=== PATIENT | female | born 1995 | race Caucasian/White ===

== ENCOUNTER 2016-04-11 10:04 | Emergency (ER) | payer BC, OTHER ==
[~2016-04-11] VITALS: Ht 167.6 cm; Wt 88.0 kg
[~2016-04-11 10:04] MED LIST: CETI5TAB2 PO; FIORIC PO; MOBI15TA PO; PROM25TA5 PO; SERT100 PO
[2016-04-11 10:06] VITALS: BP 140/88; PULSE 88; RESP 20; TEMP 97.9; O2SAT 95
--- NOTE | 2016-04-11 10:43 | PD ---
HPI Chief Complaint: ENT Complaint Time Seen by Provider: 10:33 Travel History International Travel<30 days: No Contact w/Intl Traveler<30days: No Traveled to known affect area: No History of Present Illness HPI 20-year-old female presents to the emergency Department with complaint of a possible nasal septal abscess that has developed over the past 3 days. Has history of nasal septal abscess in December 2014 and her current symptoms feel similar. She also has history of migraine headaches and is having a migraine at this time that is unrelieved with Fioricet, which normally takes the edge off at least; last took this morning at approximately 2 AM. Reports severe tenderness to the left nasal and maxillary area. Denies nasal drainage. Denies recent cough, nasal congestion, ear pain, sore throat. Denies fever, chills, nausea, vomiting. Reports having CT scan to verify the nasal septal abscess a year ago. Reports following up with ENT and having the abscess drained and being on oral antibiotics and topical antibiotics. Primary care provider is Dr. Friend. Allergies to Augmentin, Omnicef, Cedax. History of migraines and exercise-induced asthma. No other modifying factors or associated signs and symptoms. PFSH Past Medical History Hx Anticoagulant Therapy: No Asthma: Yes (ACTIVITY INDUCED) Depression: Yes Cardiovascular Problems: No Chemotherapy: No Cerebrovascular Accident: No Diabetes: No Diminished Hearing: No Musculoskeletal: Yes (BACK PAIN) Respiratory: Yes (asthma) Immunizations Current: Yes ?: Not : 0 Past Surgical History Hysterectomy: No Oral Surgery: Yes (WISDOM TEETH REMOVAL) Social History Alcohol Use: No Tobacco Use: No Substance Use: No (DENIED) Allergies-Medications (Allergen,Severity, Reaction): Coded Allergies: Augmentin (Verified Allergy, Severe, Hives, 04/11/16) Omnicef (Verified Allergy, Severe, Anaphylaxis, 04/11/16) Uncoded Allergies: cedax (Allergy, Severe, Anaphylaxis, 03/16/14) Reported Meds & Prescriptions Reported Meds & Active Scripts Active Reported Zoloft (Sertraline HCl) 100 Mg Tab 150 Mg PO DAILY Review of Systems Except as stated in HPI: all other systems reviewed are Neg Physical Exam Narrative GENERAL: Well-nourished, well-developed female patient, in no acute distress; afebrile, nontoxic-appearing SKIN: Warm and dry. No rash. HEAD: Atraumatic. Normocephalic. EYES: Pupils equal and round at 3 mm with brisk reaction. No scleral icterus. No injection or drainage. PERRLA. ENT: Mucosa pink and moist. No erythema or exudates. No uvular edema. No uvular , palatal, or tonsillar deviation. Airway patent. Nasal turbinates appear normal without nasal blood, purulent drainage or septal hematoma; I am unable to visualize a septal abscess bilaterally. Patient has severe tenderness to the left nostril on exam and palpation to the left nasal bridge and maxillary area; areas without erythema, edema. EARS: Bilateral pinnae and external canals appear within normal limits. Bilateral tympanic membranes without erythema, dullness or perforation. NECK: Trachea midline. No lymphadenopathy. CARDIOVASCULAR: Regular rate and rhythm. No murmur appreciated. RESPIRATORY: No accessory muscle use. Clear to auscultation. Breath sounds equal bilaterally. GASTROINTESTINAL: Abdomen soft, non-tender, nondistended. Hepatic and splenic margins not palpable. Bowel sounds are active 4 quadrants. MUSCULOSKELETAL: No obvious deformities. No clubbing. No cyanosis. No edema. NEUROLOGICAL: Awake and alert. Oriented 3. No obvious cranial nerve deficits. Motor grossly within normal limits. Normal speech. Moves all extremities. 5/5 strength to all extremities. PSYCHIATRIC: Appropriate mood and affect; insight and judgment normal Data Data Last Documented VS Vital Signs Date Time Temp Pulse Resp B/P Pulse Ox O2 Delivery O2 Flow Rate FiO2 04/11/16 10:06 97.9 88 20 140/88 95 Room Air Orders Basic Metabolic Panel (Bmp) (04/11/16 10:43) Complete Blood Count With Diff (04/11/16 10:43) Iv Access Insert/Monitor (04/11/16 10:43) Sodium Chloride 0.9% Flush (Ns Flush) (04/11/16 10:45) Ed Urine Pregnancytest Poc (04/11/16 10:43) Ct Facial Bones W Iv Contrast (04/11/16 ) Hydromorphone Pf Inj (Dilaudid Pf Inj) (04/11/16 11:15) Ondansetron Inj (Zofran Inj) (04/11/16 11:15) Ketorolac Inj (Toradol Inj) (04/11/16 11:15) Diphenhydramine Inj (Benadryl Inj) (04/11/16 11:15) Prochlorperazine Inj (Compazine Inj) (04/11/16 11:15) Sodium Chlor 0.9% 1000 Ml Inj (Ns 1000 M (04/11/16 11:15) Wound Culture And Gram Stain (04/11/16 11:26) Labs Laboratory Tests Test 04/11/16 09:50 White Blood Count 7.8 TH/MM3 Red Blood Count 4.88 MIL/MM3 Hemoglobin 14.3 GM/DL Hematocrit 42.2 % Mean Corpuscular Volume 86.5 FL Mean Corpuscular Hemoglobin 29.3 PG Mean Corpuscular Hemoglobin 33.9 % Concent Red Cell Distribution Width 13.4 % Platelet Count 300 TH/MM3 Mean Platelet Volume 7.6 FL Neutrophils (%) (Auto) 60.9 % Lymphocytes (%) (Auto) 30.0 % Monocytes (%) (Auto) 6.5 % Eosinophils (%) (Auto) 1.9 % Basophils (%) (Auto) 0.7 % Neutrophils # (Auto) 4.7 TH/MM3 Lymphocytes # (Auto) 2.3 TH/MM3 Monocytes # (Auto) 0.5 TH/MM3 Eosinophils # (Auto) 0.2 TH/MM3 Basophils # (Auto) 0.1 TH/MM3 CBC Comment DIFF FINAL Differential Comment MDM Medical Decision Making Medical Screen Exam Complete: Yes Emergency Medical Condition: Yes Medical Record Reviewed: Yes Differential Diagnosis Migraine headache, septal abscess, sinusitis Narrative Course 20-year-old female with history of septal abscess times one year ago, presents with similar symptoms for the past 3 days. Has history of migraine headaches that she is unable to get under control at this time. Took Fioricet last at 2 AM this morning with no relief. Patient reports past nasal septal abscess was verified via CT scan and she followed up outpatient with ENT; she was not seen at [facility] for initial diagnosis of the nasal septal abscess. I cannot visualize a nasal septal abscess on physical exam. I feel a CT scan is necessary to rule out nasal septal abscess at this time. IV site obtained. CBC , BMP, CT facial bones with IV contrast ordered. Patient will be moved to a medical bed for further treatment and evaluation. 1125: Report given to Dr. Sanchez. See her note for continued patient care and patient disposition. Charley Joseph Apr 11, 2016 10:42
[2016-04-11] MEDS ORDERED: SODIUM CHLORIDE 0.9% FLUSH 5 ML FLUSH IVF PRN (10:45)
[2016-04-11] MEDS ORDERED: ZOLO100T PO (11:07)
[2016-04-11] MEDS ORDERED: diphenhydrAMINE HCL 50 MG/ML VIAL IV PUSH ONE (11:15)
[2016-04-11] MEDS ORDERED: ONDANSETRON HCL 4 MG/2 ML VIAL IV PUSH ONE (11:15)
[2016-04-11] MEDS ORDERED: HYDROmorphone HCL PF 1 MG/ML VIAL IV PUSH ONE (11:15)
[2016-04-11] MEDS ORDERED: PROCHLORPERAZINE INJ 10 MG/2 ML VIAL IVS ONE (11:15)
[2016-04-11] MEDS ORDERED: SODIUM CHLOR 0.9% 1000 ML INJ 1,000 ML IV ONE (11:15)
[2016-04-11] MEDS ORDERED: KETOROLAC TROMETHAMINE 30 MG/ML (IVP) VIAL IV PUSH ONE (11:15)
[2016-04-11 11:30] VITALS: BP 121/74; PULSE 87; RESP 17; O2SAT 99
[2016-04-11 11:31] LABS: AUTOMATED NEUTROPHIL # 4.7 TH/MM3 (1.8-7.7); BASOPHIL # 0.1 TH/MM3 (0-0.2); BASOPHIL % 0.7 % (0.0-2.0); EOSINOPHIL # 0.2 TH/MM3 (0-0.4); EOSINOPHIL % 1.9 % (0.0-4.0); HEMATOCRIT 42.2 % (35.0-46.0); HEMO FLAGS DIFF FINAL; LYMPHOCYTE # 2.3 TH/MM3 (1.0-4.8); MEAN CELL VOLUME 86.5 FL (80.0-100.0); MEAN CORPUSCULAR HEMOGLOBIN 29.3 PG (27.0-34.0); MEAN CORPUSCULAR HGB CONC 33.9 % (32.0-36.0); MONO % 6.5 % (0.0-8.0); NEUT % 60.9 % (16.0-70.0); PLATELET COUNT 300 TH/MM3 (150-450); RED BLOOD COUNT 4.88 MIL/MM3 (4.00-5.30); RED CELL DISTRIBUTION WIDTH 13.4 % (11.6-17.2); WHITE BLOOD COUNT 7.8 TH/MM3 (4.0-11.0)
[2016-04-11 11:41] LABS: BICARBONATE 27.5 MEQ/L (21.0-32.0); POTASSIUM 3.9 MEQ/L (3.5-5.1)
[2016-04-11] MEDS ORDERED: IOHEXOL 350 MG/ML 10 ML VIAL (for RAD DIAG) IV ONE (12:33)
--- NOTE | 2016-04-11 12:55 | RADRPT ---
EXAM DATE/TIME: 04/11/2016 12:17 [facility] COMPARISON: CT ORBITS W CONTRAST, December 30, 2014, 21:56. INDICATIONS : Evaluate for abscess. IV CONTRAST: 75 cc Omnipaque 350 (iohexol) IV RADIATION DOSE: 36.50 CTDIvol (mGy) MEDICAL HISTORY : Septal abscess 03/2015 SURGICAL HISTORY : None. ENCOUNTER: Initial ACUITY: 1 day PAIN SCALE: 4/10 LOCATION: facial TECHNIQUE: Volumetric scanning of the facial bones was performed. Using automated exposure control and adjustme nt of the mA and/or kV according to patient size, radiation dose was kept as low as reasonably achiev able to obtain optimal diagnostic quality images. FINDINGS: ORBITS: The orbital and infraorbital osseous structures are intact. The retroconal structures have a normal configuration. No radiopaque foreign bodies are seen. NASAL BONE: The nasal bone and maxillary spine are intact ZYGOMATIC ARCHES: Symmetric without evidence of fracture. SINUSES: The maxillary, ethmoid and frontal sinuses are intact. No air-fluid levels seen. NASAL CAVITY: Nasal septal deviation to the right. SOFT TISSUES: No radiopaque foreign bodies seen. No soft-tissue swelling is seen. INTRACRANIAL: No intracranial air seen. CRIBIFORM PLATE: Grossly intact. No evidence of abscess. No significant change compared to the prior study. CONCLUSION: 1. Mild nasal septal deviation to the right. 2. Otherwise, unremarkable examination. Javan Fagan MD on April 11, 2016 at 12:50 Board Certified Radiologist. This report was verified electronically.
[2016-04-11 12:59] VITALS: BP 117/68; PULSE 60; RESP 16; O2SAT 95
[2016-04-11] MEDS ORDERED: DEXAMETHASONE SOD PHOS 4 MG/ML VIAL IV PUSH ONE (13:00)
[2016-04-11] MEDS ORDERED: DOXY100C PO (13:06)
--- NOTE | 2016-04-11 13:07 | PD ---
Physical Exam Time Seen by Provider: 12:57 Narrative Please refer to previous providers documentation for details running patient's current visit. Data Data Last Documented VS Vital Signs Date Time Temp Pulse Resp B/P Pulse Ox O2 Delivery O2 Flow Rate FiO2 04/11/16 12:59 60 16 117/68 95 Room Air 04/11/16 10:06 97.9 Orders Basic Metabolic Panel (Bmp) (04/11/16 10:43) Complete Blood Count With Diff (04/11/16 10:43) Iv Access Insert/Monitor (04/11/16 10:43) Sodium Chloride 0.9% Flush (Ns Flush) (04/11/16 10:45) Ed Urine Pregnancytest Poc (04/11/16 10:43) Ct Facial Bones W Iv Contrast (04/11/16 ) Hydromorphone Pf Inj (Dilaudid Pf Inj) (04/11/16 11:15) Ondansetron Inj (Zofran Inj) (04/11/16 11:15) Ketorolac Inj (Toradol Inj) (04/11/16 11:15) Diphenhydramine Inj (Benadryl Inj) (04/11/16 11:15) Prochlorperazine Inj (Compazine Inj) (04/11/16 11:15) Sodium Chlor 0.9% 1000 Ml Inj (Ns 1000 M (04/11/16 11:15) Wound Culture And Gram Stain (04/11/16 11:26) Iohexol 350 Inj (Omnipaque 350 Inj) (04/11/16 12:33) Dexamethasone Inj (Decadron Inj) (04/11/16 13:00) Labs Laboratory Tests Test 04/11/16 09:50 White Blood Count 7.8 TH/MM3 Red Blood Count 4.88 MIL/MM3 Hemoglobin 14.3 GM/DL Hematocrit 42.2 % Mean Corpuscular Volume 86.5 FL Mean Corpuscular Hemoglobin 29.3 PG Mean Corpuscular Hemoglobin 33.9 % Concent Red Cell Distribution Width 13.4 % Platelet Count 300 TH/MM3 Mean Platelet Volume 7.6 FL Neutrophils (%) (Auto) 60.9 % Lymphocytes (%) (Auto) 30.0 % Monocytes (%) (Auto) 6.5 % Eosinophils (%) (Auto) 1.9 % Basophils (%) (Auto) 0.7 % Neutrophils # (Auto) 4.7 TH/MM3 Lymphocytes # (Auto) 2.3 TH/MM3 Monocytes # (Auto) 0.5 TH/MM3 Eosinophils # (Auto) 0.2 TH/MM3 Basophils # (Auto) 0.1 TH/MM3 CBC Comment DIFF FINAL Differential Comment Sodium Level 140 MEQ/L Potassium Level 3.9 MEQ/L Chloride Level 105 MEQ/L Carbon Dioxide Level 27.5 MEQ/L Anion Gap 8 MEQ/L Blood Urea Nitrogen 11 MG/DL Creatinine 0.97 MG/DL Estimat Glomerular Filtration 73 ML/MIN Rate Random Glucose 98 MG/DL Calcium Level 8.8 MG/DL MDM Medical Record Reviewed: Yes Supervised Visit with URSULA: No Narrative Course Patient is signed out to me with lab work and imaging pending. CBC and BMP is without acute concern. I did note inflammation of the left turbinates occluding the airway of the left knee air. There is some purulent drainage. Culture of this is obtained. Imaging studies show a deviated septum but no other acute abnormality. There is no identifiable abscess. Discussed the patient my attending physician. 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 I have also treated the patient for her migraine headache. Upon reassessment, this has completely resolved. Patient is discharged Home with her family to return immediately with any acute worsening of symptoms.. Diagnosis Primary Impression: Inflammation of nasal septum Additional Impression: Migraine Qualified Code: G43.909 - Migraine without status migrainosus, not intractable , unspecified migraine type Referrals: Ear / Nose / Throat Specialist Primary Care Physician Patient Instructions: General Instructions, Migraine Headache (ED) Additional Instruction: Follow-up with your primary care provider Do not pick Or squeeze the area that is painful or inflamed Return immediately to the emergency department with any acute worsening of symptoms Med/Other Pt SpecificInfo: Prescription(s) given Scripts Doxycycline Hyclate 100 Mg [id number] Mg PO BID #20 CAP Ref 0 Prov:Abigail Urbina 04/11/16 Disposition: 01 DISCHARGE HOME Condition: Stable Abigail Urbina Apr 11, 2016 13:07
--- NOTE | 2016-04-11 15:23 | PD ---
Physical Exam Date Seen by Provider: Apr 11, 2016 Time Seen by Provider: 12:30 Narrative I, Dr. Sanchez, have reviewed the advance practice practitioner's documentation and am in agreement, met with the patient face to face, made the diagnosis, and the medical decision making was done by me. *My assessment and Findings: Patient seen and evaluated with PA and nurse practitioner, please see their chart for further information. Patient here with nasal septum pain. On evaluation there does appear to be some edema and mild tenderness to palpation of the septum. Lab work did not reveal any significant metabolic issues or sepsis. CAT scan done did not show obvious abscess. At this point, it appears she may have some underlying cellulitis. Plan to treat with antibiotics and symptomatic relief or pain and have her follow-up with her ENT Tuesday. Plan has been discussed with her and they state understanding. Data Data Last Documented VS Vital Signs Date Time Temp Pulse Resp B/P Pulse Ox O2 Delivery O2 Flow Rate FiO2 04/11/16 12:59 60 16 117/68 95 Room Air 04/11/16 10:06 97.9 Orders Basic Metabolic Panel (Bmp) (04/11/16 10:43) Complete Blood Count With Diff (04/11/16 10:43) Iv Access Insert/Monitor (04/11/16 10:43) Sodium Chloride 0.9% Flush (Ns Flush) (04/11/16 10:45) Ed Urine Pregnancytest Poc (04/11/16 10:43) Ct Facial Bones W Iv Contrast (04/11/16 ) Hydromorphone Pf Inj (Dilaudid Pf Inj) (04/11/16 11:15) Ondansetron Inj (Zofran Inj) (04/11/16 11:15) Ketorolac Inj (Toradol Inj) (04/11/16 11:15) Diphenhydramine Inj (Benadryl Inj) (04/11/16 11:15) Prochlorperazine Inj (Compazine Inj) (04/11/16 11:15) Sodium Chlor 0.9% 1000 Ml Inj (Ns 1000 M (04/11/16 11:15) Wound Culture And Gram Stain (04/11/16 11:26) Iohexol 350 Inj (Omnipaque 350 Inj) (04/11/16 12:33) Dexamethasone Inj (Decadron Inj) (04/11/16 13:00) Labs Laboratory Tests Test 04/11/16 09:50 White Blood Count 7.8 TH/MM3 Red Blood Count 4.88 MIL/MM3 Hemoglobin 14.3 GM/DL Hematocrit 42.2 % Mean Corpuscular Volume 86.5 FL Mean Corpuscular Hemoglobin 29.3 PG Mean Corpuscular Hemoglobin 33.9 % Concent Red Cell Distribution Width 13.4 % Platelet Count 300 TH/MM3 Mean Platelet Volume 7.6 FL Neutrophils (%) (Auto) 60.9 % Lymphocytes (%) (Auto) 30.0 % Monocytes (%) (Auto) 6.5 % Eosinophils (%) (Auto) 1.9 % Basophils (%) (Auto) 0.7 % Neutrophils # (Auto) 4.7 TH/MM3 Lymphocytes # (Auto) 2.3 TH/MM3 Monocytes # (Auto) 0.5 TH/MM3 Eosinophils # (Auto) 0.2 TH/MM3 Basophils # (Auto) 0.1 TH/MM3 CBC Comment DIFF FINAL Differential Comment Sodium Level 140 MEQ/L Potassium Level 3.9 MEQ/L Chloride Level 105 MEQ/L Carbon Dioxide Level 27.5 MEQ/L Anion Gap 8 MEQ/L Blood Urea Nitrogen 11 MG/DL Creatinine 0.97 MG/DL Estimat Glomerular Filtration 73 ML/MIN Rate Random Glucose 98 MG/DL Calcium Level 8.8 MG/DL [facility] Medical Record Reviewed: Yes Supervised Visit with URSULA: Yes Diagnosis Primary Impression: Inflammation of nasal septum Additional Impression: Migraine Qualified Code: G43.909 - Migraine without status migrainosus, not intractable , unspecified migraine type Referrals: Ear / Nose / Throat Specialist Primary Care Physician Patient Instructions: General Instructions, Migraine Headache (ED) Departure Forms: Tests/Procedures Additional Instruction: Follow-up with your primary care provider Do not pick Or squeeze the area that is painful or inflamed Return immediately to the emergency department with any acute worsening of symptoms Scripts Doxycycline Hyclate 100 Mg [id number] Mg PO BID #20 CAP Ref 0 Prov:Abigail Urbina 04/11/16 Disposition: 01 DISCHARGE HOME Condition: Stable Sarah Sanchez MD Apr 11, 2016 15:23
== END 2016-04-11 13:28 | disposition home or self-care (01) ==
LOC: NEPB 10:04 → NEPA 13:28
DX: J34.89 Other specified disorders of nose and nasal sinuses (principal); G43.909 Migraine, unspecified, not intractable, without status migrainosus
CPT/HCPCS: 70487; 80048; 84703; 85025; 86403; 87070; 96361; 96374; 96375; 99284; J0780; J1100; J1170; J1200; J1885; J2405; J7030; Q9967